=== PATIENT | female | born 1960 | race Asian ===

== ENCOUNTER 2017-10-24 07:34 | Outpatient (CLI) | payer BC | END 2017-10-24 20:23 | disposition home or self-care (01) | LOC: SMA 07:34 | PROVIDERS: ATTEND Obstetrics & Gynecology | DX: Z12.31 Encounter for screening mammogram for malignant neoplasm of breast (principal) | CPT/HCPCS: G0202 ==

== ENCOUNTER 2018-10-30 07:59 | Outpatient (CLI) | payer BC | END 2018-10-30 18:05 | disposition home or self-care (01) | LOC: SMA 07:59 | PROVIDERS: ATTEND Obstetrics & Gynecology | DX: Z12.31 Encounter for screening mammogram for malignant neoplasm of breast (principal) | CPT/HCPCS: 77067 ==